=== PATIENT | male | born 1990 | race African-American/Black ===

== ENCOUNTER 2021-01-13 18:22 | Emergency (ER) | payer BC ==
[~2021-01-13] VITALS: Ht 182.9 cm; Wt 136.3 kg
--- NOTE | 2021-01-13 18:29 | PHYS DOC ---
Past History Past Medical History: Abscess General Adult HPI: HPI: ".. I think I got a hernia..." or "Abscess or something...".." I maybe got an injury from my wt.belt..,." Patient is a 30 year old male who presents with above hx and complaints 4 x 4 centimeter area of erythema and edema on the left mid abdomen wall. Area center appears to be a pimple. But underlying fluctuant consistent with abscess. Patient denies any history immunosuppression. No history of specific ill contacts. Patient has been using steroids and his weightlifting program and has history of recent cocaine use. Patient normally healthy. Patient does not remember his last tetanus vaccination. No recent travel. Review of Systems: Review of Systems: Constitutional: Denies fever or chills Eyes: Denies change in visual acuity HENT: Denies nasal congestion or sore throat Respiratory: Denies cough or shortness of breath Cardiovascular: Denies chest pain or edema GI: Denies abdominal pain, nausea, vomiting, bloody stools or diarrhea : Denies dysuria Musculoskeletal: Denies back pain or joint pain Integument: Complains of skin inflammation/abscess left abdomen wall Neurologic: Denies headache, focal weakness or sensory changes Endocrine: Denies polyuria or polydipsia Lymphatic: Denies swollen glands Psychiatric: Denies depression or anxiety Family History: Family History: Noncontributory to presentation Current Medications: Current Meds: See nursing for home meds Allergies: Allergies: No known drug allergies Physical Exam: PE: Constitutional: Well developed, well nourished, mild distress, non-toxic a ppearance. [] HENT: Normocephalic, atraumatic, bilateral external ears normal, oropharynx moist, no oral exudates, nose normal. [] Eyes: PERRLA, EOMI, conjunctiva normal, no discharge. [] Neck: Normal range of motion, no tenderness, supple, no stridor. [] Cardiovascular:Heart rate regular rhythm, no murmur [] Lungs & Thorax: Bilateral breath sounds clear to auscultation [] Abdomen: Bowel sounds normal, soft, no tenderness, no masses, no pulsatile masses. [] Area 4 x 4 cm left abdominal wall. Skin: Warm, dry, no erythema, no rash. [] Back: No tenderness, no CVA tenderness. [] Extremities: No tenderness, no cyanosis, no clubbing, ROM intact, no edema. [] Neurologic: Alert and oriented X 3, normal motor function, normal sensory function, no focal deficits noted. [] Psychologic: Affect anxious, judgement normal, mood normal. [] EKG: EKG: [] Radiology/Procedures: Radiology/Procedures: [] Heart Score: C/O Chest Pain: N/A Risk Factors: Risk Factors: DM, Current or recent (<one month) smoker, HTN, HLP, family history of CAD, obesity. Risk Scores: Score 0 - 3: 2.5% MACE over next 6 weeks - Discharge Home Score 4 - 6: 20.3% MACE over next 6 weeks - Admit for Clinical Observation Score 7 - 10: 72.7% MACE over next 6 weeks - Early Invasive Strategies Course & Med Decision Making: Course & Med Decision Making Pertinent Labs and Imaging studies reviewed. (See chart for details) Procedure note-incision and drainage- Patient abscess site scrubbed with Betadine. 1 stick with 11 blade. Return of copious amount of purulent drainage.. Sterile Q-tip used to break down loculations. Dressing applied. Patient use warm compresses of salt water or Epson salts 4 times a day. Then massage area with Polysporin afterwards. Patient take Bactrim DS twice a day. Patient's tetanus was updated. Patient follow-up primary care. Patient return if any concerns. Impression: 1. Abscess [] Dragon Disclaimer: Dragon Disclaimer: This electronic medical record was generated, in whole or in part, using a voice recognition dictation system. Departure Departure: Referrals: PCP,UNKNOWN (PCP) Scripts Sulfamethoxazole/Trimethoprim (BACTRIM DS TABLET) 1 Each Tablet 1 TAB PO BID for abscess for 10 Days, #20 TAB 0 Refills Prov: DARRION REYNOSO MD 01/13/21 [facility] Disclaimer This chart was dictated in whole or in part using Voice Recognition software in a busy, high-work load, and often noisy Emergency Department environment. It may contain unintended and wholly unrecognized errors or omissions. DARRION REYNOSO MD Jan 13, 2021 18:29
[2021-01-13] MEDS ORDERED: SULF1TAB24 PO (18:58)
[2021-01-13] MEDS ORDERED: SMZ/TMP 800/160MG TABLET. PO ONE (19:00)
[2021-01-13] MEDS ORDERED: DIPH,PERTUSS(ACELL),TET VAC/PF 0.5 ML SYRINGE. VAX IM ONE (19:00)
[2021-01-13] MEDS ORDERED: HYDROcodon/IBUPROFEN 7.5/200MG 1 TAB TABLET PO ONE (19:00)
[2021-01-13 19:25] VITALS: BP 158/78
== END 2021-01-13 19:33 | disposition home or self-care (01) ==
LOC: ER 18:22
DX: L02.211 Cutaneous abscess of abdominal wall (principal)
CPT/HCPCS: 10060; 90471; 90715; 99283

== ENCOUNTER → 2021-01-18 | Outpatient (CLI) | payer BC ==
[2021-01-13 19:25] VITALS: BP 158/78
[~2021-01-18] MED LIST: SULF1TAB24 PO
--- NOTE | 2021-01-18 16:57 | RAD ---
EXAM: Abdomen sonogram. HISTORY: Abdominal wall abscess. TECHNIQUE: Sonographic imaging of the ventral abdominal wall at the site of palpable concern was perf ormed. COMPARISON: None. FINDINGS: There is a tiny irregular complex fluid collection within the subcutaneous fat of the left upper quadrant ventral abdominal wall at the site of palpable concern measuring 1.6 x 1.0 x 0.8 cm. T his extends to the skin surface via a thin tract. There is surrounding edema. IMPRESSION: 1.6 cm irregular complex fluid collection within the subcutaneous fat of the ventral abdo jesica wall extending to the skin surface, possibly due to a tiny abscess/phlegmon. There is surroundi ng edema likely due to cellulitis. Electronically signed by: Em Barraza MD (01/18/2021 4:54 PM) [id number]
== END ==
LOC: US 16:27
PROVIDERS: ATTEND Family Medicine
DX: L02.91 Cutaneous abscess, unspecified (principal)
CPT/HCPCS: 76705